=== PATIENT | male | born 1965 | race American Indian/Alaskan Native ===

== ENCOUNTER 2021-01-02 13:43 | Inpatient (IN) | payer MEDICAID ==
--- NOTE | 2021-01-02 14:47 | Event Note ---
ED Screening Note ED Screening Note: Patient brought in by EMS from [place] Complaint was failure to thrive The report by nurse from EMS states that patient has not been eating and is unable to care for himself He is complaining of bilateral lower extremity edema for 2 weeks He states he also has generalized weakness and no appetite He states he has not been taking his medication Patient states he was diagnosed with heart failure at another hospital approximately a week ago On exam patient has bilateral lower extremity pitting edema and rales and rhonchi present on lung exam This initial assessment/diagnostic orders/clinical plan/treatment(s) is/are subject to change based on patients health status, clinical progression and re- assessment by fellow clinical providers in the ED. Further treatment and workup at subsequent clinical providers discretion. Patient/guardian urged not to elope from the ED as their condition may be serious if not clinically assessed and managed. Initial orders include: Labs, EKG, chest x-ray, urine
--- NOTE | 2021-01-02 15:35 | XRay Report ---
CHEST 2 VIEWS INDICATION / CLINICAL INFORMATION: LE edema, rales on exam, hx of CHF. COMPARISON: None available. FINDINGS: SUPPORT DEVICES: None. HEART / MEDIASTINUM: Enlarged cardiac silhouette. LUNGS / PLEURA: Central pulmonary vascular congestion is noted with mild bilateral interstitial edema . No confluent infiltrates or pleural effusions. No pneumothorax. ADDITIONAL FINDINGS: No significant additional findings. IMPRESSION: 1. Congestive heart failure with mild bilateral interstitial edema. Signer Name: Watson Bergeron MD Signed: 01/02/2021 3:30 PM Workstation Name: [id number]
[2021-01-02 16:20] LABS: Hematocrit 39.1 % (35.5-45.6); Hemoglobin 12.1 gm/dl (11.8-15.2); Mean Corpuscular HGB Conc 31 % (32-34); Mean Corpuscular Volume 102 fl (84-94); Platelet Count 278 K/mm3 (140-440); Red Blood Count 3.84 M/mm3 (3.65-5.03); Red Cell Distribution Width 17.5 % (13.2-15.2)
[2021-01-02 16:25] LABS: Alanine Aminotransferase 225 units/L (7-56); Albumin 3.1 g/dL (3.9-5); Blood Urea Nitrogen 23 mg/dL (9-20); Calcium 8.7 mg/dL (8.4-10.2); Hemolysis Index 129
[2021-01-02 16:28] LABS: BUN/Creatinine Ratio 38
[2021-01-02 17:41] LABS: Total Cells Counted 100
[2021-01-02 17:42] LABS: Band Neutrophils # (Manual) 0.1 K/mm3
[2021-01-02 17:43] LABS: Anisocytosis RARE; Giant Platelets Rare; Large Platelets Rare
[2021-01-02 17:44] LABS: Ovalocytes Rare; Platelet Estimate Consistent w Auto
[2021-01-02] MEDS ORDERED: FUROSEMIDE 40 MG/4 ML INJ IV ONE (21:49)
--- NOTE | 2021-01-02 21:54 | Emergency Department Report ---
ED General Adult HPI - General Chief complaint: Extremity Injury, Lower Stated complaint: FAILURE TO THRIVE Time Seen by Provider: 01/02/21 14:45 Source: patient, EMS Mode of arrival: Stretcher Limitations: Physical Limitation - History of Present Illness Initial comments: Patient is 55-year-old male with a recent diagnosis of congestive heart failure and hypertension. Patient brought to the EMS from [facility] for evaluation of generalized weakness and unable to eat or drink and no energy. Patient also complaining of bilateral lower extremity swelling and shortness of breath. Patient denied any fever or chills. No chest pain. Patient stated that he just does not feel good. -: Gradual - Related Data Allergies Allergy/AdvReac Type Severity Reaction Status Date / Time No Known Allergies Allergy Unverified 01/02/21 14:42 ED Review of Systems ROS: Stated complaint: FAILURE TO THRIVE Other details as noted in HPI Comment: All other systems reviewed and negative Constitutional: denies: chills, fever Respiratory: orthopnea, shortness of breath, SOB with exertion, SOB at rest. denies: cough, wheezing Cardiovascular: denies: chest pain Gastrointestinal: denies: abdominal pain, nausea Musculoskeletal: denies: back pain Neurological: weakness. denies: headache, numbness, paresthesias, confusion, abnormal gait ED Past Medical Hx - Past Medical History Previous Medical History?: Yes Hx Hypertension: Yes Hx Congestive Heart Failure: Yes - Surgical History Past Surgical History?: No - Social History Smoking Status: Never Smoker ED Physical Exam - General Limitations: Physical Limitation General appearance: alert - Head Head exam: Present: atraumatic, normocephalic, normal inspection - Eye Eye exam: Present: normal appearance, PERRL - ENT ENT exam: Present: normal exam, normal orophraynx, mucous membranes moist - Respiratory Respiratory exam: Present: rales, decreased breath sounds. Absent: respiratory distress, wheezes, rhonchi, accessory muscle use, prolonged expiratory - Cardiovascular Cardiovascular Exam: Present: tachycardia, gallop - GI/Abdominal GI/Abdominal exam: Present: soft, normal bowel sounds. Absent: distended, tenderness, guarding, rebound, rigid, mass, bruit, pulsatile mass, hernia - Extremities Exam Extremities exam: Present: pedal edema - Back Exam Back exam: Present: normal inspection, full ROM. Absent: CVA tenderness (R), CVA tenderness (L) - Neurological Exam Neurological exam: Present: alert, oriented X3, CN II-XII intact - Psychiatric Psychiatric exam: Present: normal mood. Absent: homicidal ideation, suicidal ideation - Skin Skin exam: Present: warm ED Course Vital Signs 01/02/21 14:46 Temperature 97.9 F Pulse Rate 105 H Respiratory 19 Rate Blood Pressure 132/89 O2 Sat by Pulse 95 Oximetry ED Medical Decision Making - Lab Data Result diagrams: 01/02/21 15:00 01/02/21 15:00 - EKG Data -: EKG Interpreted by Me EKG shows normal: sinus rhythm Rate: tachycardia - EKG Data Interpretation: no acute changes - Radiology Data Radiology results: report reviewed - Medical Decision Making Patient is 55-year-old male with a recent diagnosis of congestive heart failure and hypertension. Patient brought to the EMS from [facility] for evaluation of generalized weakness and unable to eat or drink and no energy. Patient also complaining of bilateral lower extremity swelling and shortness of breath. Patient denied any fever or chills. No chest pain. Patient stated that he just does not feel good. Chest x-ray showed bilateral interstitial edema consistent with congestive heart failure. BNP is more than 6000. Patient started on Lasix. Patient potassium is 5.6 most likely be corrected with Lasix IV. I discussed the patient with Dr. Tidwell,, he agreed to admit the patient to medical service for further management. Critical care attestation.: If time is entered above; I have spent that time in minutes in the direct care of this critically ill patient, excluding procedure time. ED Disposition Clinical Impression: Acute exacerbation of congestive heart failure Disposition: OP ADMIT IP TO THIS HOSP Is pt being admited?: Yes Condition: Stable Referrals: PRIMARY CARE, [Primary Care Provider] - 3-5 Days
[2021-01-02] MEDS ORDERED: ALUM-MAG HYDROXIDE-SIMETHICONE 200-200-20MG/5ML ORAL LIQD 30 ML PO PRN (23:01)
[2021-01-02] MEDS ORDERED: MAGNESIUM HYDROXIDE (MOM) ORAL LIQD UDC PO PRN (23:01)
[2021-01-02] MEDS ORDERED: ONDANSETRON 4 MG/2 ML INJ IV PRN (23:01)
[2021-01-02] MEDS ORDERED: SENNOSIDES 8.6 MG TAB PO PRN (23:01)
[2021-01-02] MEDS ORDERED: ACETAMINOPHEN 325 MG TAB PO PRN (23:01)
[2021-01-02] MEDS ORDERED: traZODone 50 MG TAB PO PRN (23:05)
[2021-01-02] MEDS ORDERED: traMADol 50 MG TAB PO PRN (23:05)
[2021-01-02] MEDS ORDERED: hydrALAZINE 20 MG/1 ML INJ IV PRN (23:05)
[2021-01-02] MEDS: SODIUM POLYSTYRENE 15 GM/60 ML ORAL LIQD PO ONE (23:10)
[2021-01-03 02:52] LABS: Bilirubin,Urine NEG (Negative); Blood,Urine SM (Negative); Color,Urine Straw (Yellow); Protein,Urine <15 mg/dL mg/dL (Negative); Urobilinogen,Urine < 2.0 mg/dL (<2.0); WBC,Urine < 1.0 /HPF (0.0-6.0)
[2021-01-03] MEDS: FUROSEMIDE 40 MG/4 ML INJ IV SCH ×2 (05:36→21:30)
[2021-01-03 06:35] LABS: Basophils # (Auto) 0.1 K/mm3 (0.0-0.1); Eosinophils % (Auto) 0.6 % (0.0-4.3); Hematocrit 39.1 % (35.5-45.6); Hemoglobin 12.3 gm/dl (11.8-15.2); Lymphocytes # (Auto) 1.4 K/mm3 (1.2-5.4); Lymphocytes % (Auto) 26.5 % (13.4-35.0); Mean Corpuscular HGB Conc 32 % (32-34); Mean Corpuscular Volume 100 fl (84-94); Monocytes # (Auto) 0.6 K/mm3 (0.0-0.8); Platelet Count 327 K/mm3 (140-440); Red Blood Count 3.91 M/mm3 (3.65-5.03); Red Cell Distribution Width 17.1 % (13.2-15.2)
[2021-01-03 06:51] LABS: Alanine Aminotransferase 236 units/L (7-56); Albumin 3.3 g/dL (3.9-5); BUN/Creatinine Ratio 30; Blood Urea Nitrogen 27 mg/dL (9-20); Calcium 8.4 mg/dL (8.4-10.2); Hemolysis Index 1
[2021-01-03] MEDS ORDERED: SODIUM POLYSTYRENE 15 GM/60 ML ORAL LIQD PO ONE (07:16)
--- NOTE | 2021-01-03 07:22 | History and Physical Report ---
History of Present Illness Date of examination: 01/02/21 Date of admission: 01/02/21 22:34 Chief complaint: Shortness of breath History of present illness: Patient is 55-year-old male with a recent diagnosis of congestive heart failure and hypertension. Patient brought to the EMS from [facility] for evaluation of generalized weakness and unable to eat or drink and no energy. Patient also complaining of bilateral lower extremity swelling and shortness of breath. P atient denied any fever or chills. No chest pain. Patient stated that he just does not feel good. ED work-up shows WBC 6.4, platelets 278 hemoglobin 12.1, sodium level 133 potassium 5.7 creatinine 0.6, AST 101 and 109, ALT 222 and 236 BNP 6872 serum albumin 3.1 and 3.3. Chest x-ray done patient has congestive heart failure with mild bilateral interstitial edema. Patient seen in ED at bedside. Patient alert oriented x3. Patient reports shortness of breath on admission but denies chest pain. Patient has bilateral leg edema. I reviewed the medical record lab report. Patient has elevated potassium and was given Kayexalate x1. Repeat potassium still elevated will give another dose of Kayexalate. Cardiology consulted and echo ordered. Past History Past Medical History: diabetes, hypertension, hyperlipidemia Past Surgical History: Other (right 1/2 foot amputee due to diabetes) Social history: no significant social history Family history: diabetes, hypertension Medications and Allergies Allergies Allergy/AdvReac Type Severity Reaction Status Date / Time No Known Allergies Allergy Unverified 01/02/21 14:42 Home Medications Medication Instructions Recorded Confirmed Last Taken Type Unobtainable 01/03/21 01/03/21 Unknown History Active Meds: Active Medications Acetaminophen (Acetaminophen 325 Mg Tab) 650 mg PO Q4H PRN PRN Reason: Pain MILD(1-3)/Fever >100.5/MENDOZA Al Hydrox/Mg Hydrox/Simethicone (Alum-Mag Hydroxide-Simethicone [phone]/5ml Oral Liqd 30 Ml) 30 ml PO Q4H PRN PRN Reason: Indigestion Carvedilol (Carvedilol 3.125 Mg Tab) 3.125 mg PO BID HENRRY Furosemide (Furosemide 40 Mg/4 Ml Inj) 40 mg IV BID@0600,1800 HENRRY Hydralazine HCl (Hydralazine 20 Mg/1 Ml Inj) 5 mg IV Q4HR PRN PRN Reason: Hypertension Lisinopril (Lisinopril 10 Mg Tab) 10 mg PO QDAY HENRRY Magnesium Hydroxide (Magnesium Hydroxide (Mom) Oral Liqd Udc) 30 ml PO Q4H PRN PRN Reason: Constipation Ondansetron HCl (Ondansetron 4 Mg/2 Ml Inj) 4 mg IV Q8H PRN PRN Reason: Nausea And Vomiting Senna (Sennosides 8.6 Mg Tab) 8.6 mg PO Q12HR PRN PRN Reason: Constipation Sodium Chloride (Sodium Chloride 0.9% 10 Ml Flush Syringe) 10 ml IV BID HENRRY Sodium Chloride (Sodium Chloride 0.9% 10 Ml Flush Syringe) 10 ml IV PRN PRN PRN Reason: LINE FLUSH Sodium Polystyrene Sulfonate (Sodium Polystyrene 15 Gm/60 Ml Oral Liqd) 30 gm PO ONCE ONE Stop: 01/02/21 23:02 Tramadol HCl (Tramadol 50 Mg Tab) 50 mg PO Q6H PRN PRN Reason: Pain, Moderate (4-6) Trazodone HCl (Trazodone 50 Mg Tab) 50 mg PO QHS PRN PRN Reason: Insomnia Review of Systems Constitutional: fatigue, weakness Ears, nose, mouth and throat: no epistaxis, no bleeding gums Cardiovascular: shortness of breath Respiratory: shortness of breath, dyspnea on exertion, no hemoptysis Gastrointestinal: no melena Rectal: no hemorrhoids Musculoskeletal: muscle weakness, no neck stiffness Integumentary: no rash, no pruritis Neurological: no head injury Psychiatric: no suicidal ideation, no disorientation, no hallucinations Hematologic/Lymphatic: no easy bruising, no easy bleeding Allergic/Immunologic: no urticaria Exam - Constitutional Vitals: Temp Pulse Resp BP Pulse Ox 97.9 F 105 H 19 132/89 95 01/02/21 14:46 01/02/21 14:46 01/02/21 14:46 01/02/21 14:46 01/02/21 14:46 General appearance: Present: mild distress, obese - EENT Eyes: Present: PERRL ENT: hearing intact, clear oral mucosa - Neck Neck: Present: supple, normal ROM - Respiratory Respiratory effort: normal Respiratory: bilateral: CTA - Cardiovascular Heart rate: 105 Heart Sounds: Present: S1 & S2. Absent: rub, click - Extremities Extremities: pulses symmetrical, No edema Peripheral Pulses: within normal limits - Abdominal General gastrointestinal: Present: soft, non-tender, non-distended, normal bowel sounds Male genitourinary: Present: normal - Integumentary Integumentary: Present: clear, warm, dry - Musculoskeletal Musculoskeletal: gait normal, strength equal bilaterally - Psychiatric Psychiatric: appropriate mood/affect, intact judgment & insight - Neurologic Neurologic: CNII-XII intact, moves all extremities - Allied Health Allied health notes reviewed: nursing HEART Score - HEART Score Troponin: Troponin T < 0.010 ng/mL (0.00-0.029) 01/02/21 15:00 Results - Labs CBC & Chem 7: 01/03/21 05:07 01/03/21 05:07 Labs: Abnormal lab results 01/02/21 01/02/21 Range/Units 15:00 15:00 MCV 102 H (84-94) fl MCHC 31 L (32-34) % RDW 17.5 H (13.2-15.2) % Monocytes % (Manual) 12.0 H (0.0-7.3) % Sodium 133 L (137-145) mmol/L Potassium 5.7 H (3.6-5.0) mmol/L Chloride 97.6 L (98-107) mmol/L BUN 23 H (9-20) mg/dL Creatinine 0.6 L (0.8-1.3) mg/dL AST 101 H (5-40) units/L ALT 225 H (7-56) units/L Total Creatine Kinase 225 H (55-170) units/L NT-Pro-B Natriuret Pep 6872 H (0-900) pg/mL Albumin 3.1 L (3.9-5) g/dL Assessment and Plan - Patient Problems (1) Acute exacerbation of congestive heart failure Current Visit: Yes Status: Acute Plan to address problem: ASA, BB, diuretics and oxygen supplement if needed 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 Cause- alcohol use/hepatitis/dehydration Monitor liver enzymes Will Consult GI if needed (5) Protein-calorie malnutrition, moderate Current Visit: Yes Status: Acute Plan to address problem: Consult product analyst Advised on healthy diet (6) DVT prophylaxis Current Visit: Yes Status: Acute Plan to address problem: SCD (7) Full code status Current Visit: Yes Status: Acute Plan to address problem: patient is full code
[2021-01-03] MEDS: LISINOPRIL 10 MG TAB PO SCH (09:54)
[2021-01-03] MEDS: carvediloL 3.125 MG TAB PO SCH (09:55)
--- NOTE | 2021-01-03 10:03 | Ultrasound Report ---
ULTRASOUND ABDOMEN, COMPLETE INDICATION / CLINICAL INFORMATION: Transaminitis. COMPARISON: None available. FINDINGS: PANCREAS: No well-visualized secondary to overlying bowel gas. ABDOMINAL AORTA: No significant abnormality. IVC: No significant abnormality. LIVER: Diffuse increased echogenicity throughout the hepatic parenchyma without evidence of focal hep atic lesion. The liver is of normal size measuring 12.9 cm in cc dimension. GALLBLADDER: The gallbladder is decompressed likely contributing to gallbladder wall thickening measu ring 5 mm. No evidence of cholelithiasis or pericholecystic fluid. BILE DUCTS: No significant abnormality. Common bile duct measures 1.4 mm. KIDNEYS: Right: No significant abnormality. Left: No significant abnormality. SPLEEN: No significant abnormality. FREE FLUID: None. ADDITIONAL FINDINGS: None. IMPRESSION: 1. Diffuse hepatic steatosis without focal hepatic lesion. 2. The gallbladder is decompressed likely contributing to the above-mentioned wall thickening. No caroline dence of cholelithiasis or pericholecystic fluid to suggest acute cholecystitis. Signer Name: Watson Bergeron MD Signed: 01/03/2021 9:59 AM Workstation Name: [id number]
--- NOTE | 2021-01-03 10:40 | Progress Note ---
Assessment and Plan Assessment and plan: Patient is 55-year-old male with a recent diagnosis of congestive heart failure and hypertension. Patient brought to the EMS from [facility] for evaluation of generalized weakness and unable to eat or drink and no energy. Patient also complaining of bilateral lower extremity swelling and shortness of breath. Patient denied any fever or chills. No chest pain. Patient stated that he just does not feel good. ED work-up shows WBC 6.4, platelets 278 hemoglobin 12.1, sodium level 133 potassium 5.7 creatinine 0.6, AST 101 and 109, ALT 222 and 236 BNP 6872 serum albumin 3.1 and 3.3. Chest x-ray done patient has congestive heart failure with mild bilateral interstitial edema. Patient seen in ED at bedside. Patient alert oriented x3. Patient reports shortness of breath on admission but denies chest pain. Patient has bilateral leg edema. I reviewed the medical record lab report. Patient has elevated potassium and was given Kayexalate x1. Repeat potassium still elevated will give another dose of Kayexalate. Cardiology consulted and echo ordered. 01/03: Abdominal ultrasound ordered by me shows diffuse steatosis Continue supportive care will obtain PT OT. Fall precautions. Continue diur esis. Patient according to ER documentation was found in a questionable social situation. Will obtain case management evaluation as ultimately a safe environment is in the for the patient. I also discussed with nursing staff to obtain his home medication list to assist with his management. He is a poor historian and some of his information are not I did not. Monitor electrolytes and correct as needed. Kayexalate was given again today for the hyperkalemia we will recheck labs in a.m.. Elevated LFTs may be precluding the use of atorvastatin but will defer to cardiology. (1) Acute exacerbation of congestive heart failure Current Visit: Yes Status: Acute Plan to address problem: ASA, BB, diuretics and oxygen supplement if needed ECHO and systems admin consul Chest x-ray shows Pulmonary edema and blood work shows elevated BNP (2) Diabetes type 2, uncontrolled Current Visit: Yes Status: Acute Plan to address problem: Monitor blood sugar with SSI Check HGA1c (3) Hyperkalemia Current Visit: Yes Status: Acute Plan to address problem: Kayaoxalate Monitor potassium level Check Mag level (4) Elevated liver transaminase level Current Visit: Yes Status: Acute Plan to address problem: ? Cause- alcohol use/hepatitis/dehydration Monitor liver enzymes Will Consult GI if needed (5) Protein-calorie malnutrition, moderate Current Visit: Yes Status: Acute Plan to address problem: Consult community health representative Advised on healthy diet (6) DVT prophylaxis Current Visit: Yes Status: Acute Plan to address problem: SCD (7) Full code status Current Visit: Yes Status: Acute Plan to address problem: patient is full code History Interval history: Patient seen and examined reports improvement in symptoms still with orthopnea. Informs me that he had a recent amputation about a month ago of the right forefoot. And since then discharged from the hospital has been practically homeless. He is a poor historian. Hospitalist Physical - Physical exam Narrative exam: VITAL SIGNS: Reviewed. GENERAL: The patient appears normally developed, Vital signs as documented. HEAD: No signs of head trauma. EYES: Pupils are equal. Extraocular motions intact. EARS: Hearing grossly intact. MOUTH: Oropharynx is normal. NECK: No adenopathy, no JVD. CHEST: Chest with clear breath sounds bilaterally. No wheezes, rales, or rhonchi. CARDIAC: Regular rate and rhythm. S1 and S2, without murmurs, gallops, or rubs. VASCULAR: No Edema. Peripheral pulses normal and equal in all extremities. ABDOMEN: Soft, non tender and non distended. No rebound or guarding, and no masses palpated. Bowel Sounds normal. MUSCULOSKELETAL: Good range of motion of all major joints. Extremities without clubbing, cyanosis. Right forefoot partial amputation well-healed. Trace bilateral pedal edema. NEUROLOGIC EXAM: Alert and oriented x 3 No focal sensory or strength deficits. Speech normal. Follows commands. PSYCHIATRIC: Mood normal. SKIN: detail exam as documented in skin assessment - Constitutional Vitals: Temp Pulse Resp BP Pulse Ox 97.4 F L 103 H 20 138/104 92 01/03/21 04:30 01/03/21 09:55 01/03/21 10:14 01/03/21 09:55 01/03/21 04:30 General appearance: Present: mild distress, obese HEART Score - HEART Score Troponin: Troponin T < 0.010 ng/mL (0.00-0.029) 01/02/21 15:00 Results - Labs CBC & Chem 7: 01/03/21 05:07 01/03/21 05:07 Labs: Laboratory Last Values WBC 5.4 K/mm3 (4.5-11.0) 01/03/21 05:07 RBC 3.91 M/mm3 (3.65-5.03) 01/03/21 05:07 Hgb 12.3 gm/dl (11.8-15.2) 01/03/21 05:07 Hct 39.1 % (35.5-45.6) 01/03/21 05:07 MCV 100 fl (84-94) H 01/03/21 05:07 MCH 32 pg (28-32) 01/03/21 05:07 MCHC 32 % (32-34) 01/03/21 05:07 RDW 17.1 % (13.2-15.2) H 01/03/21 05:07 Plt Count 327 K/mm3 (140-440) 01/03/21 05:07 Lymph % (Auto) 26.5 % (13.4-35.0) 01/03/21 05:07 [place] % (Auto) 11.0 % (0.0-7.3) H 01/03/21 05:07 Eos % (Auto) 0.6 % (0.0-4.3) 01/03/21 05:07 Baso % (Auto) 1.0 % (0.0-1.8) 01/03/21 05:07 Lymph # (Auto) 1.4 K/mm3 (1.2-5.4) 01/03/21 05:07 [place] # (Auto) 0.6 K/mm3 (0.0-0.8) 01/03/21 05:07 Eos # (Auto) 0.0 K/mm3 (0.0-0.4) 01/03/21 05:07 Baso # (Auto) 0.1 K/mm3 (0.0-0.1) 01/03/21 05:07 Add Manual Diff Complete 01/02/21 15:00 Total Counted 100 01/02/21 15:00 Seg Neutrophils % 60.9 % (40.0-70.0) 01/03/21 05:07 Seg Neuts % (Manual) 55.0 % (40.0-70.0) 01/02/21 15:00 Band Neutrophils % 1.0 % 01/02/21 15:00 Lymphocytes % (Manual) 31.0 % (13.4-35.0) 01/02/21 15:00 Monocytes % (Manual) 12.0 % (0.0-7.3) H 01/02/21 15:00 Eosinophils % (Manual) 1.0 % (0.0-4.3) 01/02/21 15:00 Nucleated RBC % Not Reportable 01/02/21 15:00 Seg Neutrophils # 3.3 K/mm3 (1.8-7.7) 01/03/21 05:07 Seg Neutrophils # Man 3.5 K/mm3 (1.8-7.7) 01/02/21 15:00 Band Neutrophils # 0.1 K/mm3 01/02/21 15:00 Lymphocytes # (Manual) 2.0 K/mm3 (1.2-5.4) 01/02/21 15:00 Abs React Lymphs (Man) 0.0 K/mm3 01/02/21 15:00 Monocytes # (Manual) 0.8 K/mm3 (0.0-0.8) 01/02/21 15:00 Eosinophils # (Manual) 0.1 K/mm3 (0.0-0.4) 01/02/21 15:00 Basophils # (Manual) 0.0 K/mm3 (0.0-0.1) 01/02/21 15:00 Metamyelocytes # 0.0 K/mm3 01/02/21 15:00 Myelocytes # 0.0 K/mm3 01/02/21 15:00 Promyelocytes # 0.0 K/mm3 01/02/21 15:00 Blast Cells # 0.0 K/mm3 01/02/21 15:00 WBC Morphology Not Reportable 01/02/21 15:00 Hypersegmented Neuts Not Reportable 01/02/21 15:00 Hyposegmented Neuts Not Reportable 01/02/21 15:00 Hypogranular Neuts Not Reportable 01/02/21 15:00 Smudge Cells Not Reportable 01/02/21 15:00 Toxic Granulation Not Reportable 01/02/21 15:00 Toxic Vacuolation Not Reportable 01/02/21 15:00 Dohle Bodies Not Reportable 01/02/21 15:00 Pelger-Huet Anomaly Not Reportable 01/02/21 15:00 Eze Rods Not Reportable 01/02/21 15:00 Platelet Estimate Consistent w auto 01/02/21 15:00 Clumped Platelets Not Reportable 01/02/21 15:00 Plt Clumps, EDTA Not Reportable 01/02/21 15:00 Large Platelets Rare 01/02/21 15:00 Giant Platelets Rare 01/02/21 15:00 Platelet Satelliting Not Reportable 01/02/21 15:00 Plt Morphology Comment Not Reportable 01/02/21 15:00 RBC Morphology Not Reportable 01/02/21 15:00 Dimorphic RBCs Not Reportable 01/02/21 15:00 Polychromasia Rare 01/02/21 15:00 Hypochromasia Not Reportable 01/02/21 15:00 Poikilocytosis Not Reportable 01/02/21 15:00 Anisocytosis Rare 01/02/21 15:00 Microcytosis Not Reportable 01/02/21 15:00 Macrocytosis Not Reportable 01/02/21 15:00 Spherocytes Not Reportable 01/02/21 15:00 Pappenheimer Bodies Not Reportable 01/02/21 15:00 Sickle Cells Not Reportable 01/02/21 15:00 Target Cells Not Reportable 01/02/21 15:00 Tear Drop Cells Not Reportable 01/02/21 15:00 Ovalocytes Rare 01/02/21 15:00 Helmet Cells Not Reportable 01/02/21 15:00 [place] Bodies Not Reportable 01/02/21 15:00 [place] Rings Not Reportable 01/02/21 15:00 Mario Cells Not Reportable 01/02/21 15:00 Bite Cells Not Reportable 01/02/21 15:00 Crenated Cell Not Reportable 01/02/21 15:00 Elliptocytes Not Reportable 01/02/21 15:00 Acanthocytes (Spur) Not Reportable 01/02/21 15:00 Rouleaux Not Reportable 01/02/21 15:00 Hemoglobin C Crystals Not Reportable 01/02/21 15:00 Schistocytes Not Reportable 01/02/21 15:00 Malaria parasites Not Reportable 01/02/21 15:00 Sj Bodies Not Reportable 01/02/21 15:00 Hem Pathologist Commnt No 01/02/21 15:00 Sodium 137 mmol/L (137-145) 01/03/21 05:07 Potassium 5.5 mmol/L (3.6-5.0) H 01/03/21 05:07 Chloride 94.7 mmol/L (98-107) L 01/03/21 05:07 Carbon Dioxide 28 mmol/L (22-30) 01/03/21 05:07 Anion Gap 20 mmol/L 01/03/21 05:07 BUN 27 mg/dL (9-20) H 01/03/21 05:07 Creatinine 0.9 mg/dL (0.8-1.3) 01/03/21 05:07 Estimated GFR > 60 ml/min 01/03/21 05:07 BUN/Creatinine Ratio 30 % 01/03/21 05:07 Glucose 150 mg/dL (75-100) H 01/03/21 05:07 POC Glucose 159 mg/dL (70-105) H 01/03/21 08:21 Hemoglobin A1c 5.2 % (4-6) 01/03/21 00:50 Calcium 8.4 mg/dL (8.4-10.2) 01/03/21 05:07 Magnesium 2.10 mg/dL (1.7-2.3) 01/02/21 15:00 Total Bilirubin 1.50 mg/dL (0.1-1.2) H 01/03/21 05:07 AST 109 units/L (5-40) H 01/03/21 05:07 ALT 236 units/L (7-56) H 01/03/21 05:07 Alkaline Phosphatase 108 units/L (35-129) 01/03/21 05:07 Total Creatine Kinase 225 units/L (55-170) H 01/02/21 15:00 Troponin T < 0.010 ng/mL (0.00-0.029) 01/02/21 15:00 NT-Pro-B Natriuret Pep 6872 pg/mL (0-900) H 01/02/21 15:00 Total Protein 7.4 g/dL (6.3-8.2) 01/03/21 05:07 Albumin 3.3 g/dL (3.9-5) L 01/03/21 05:07 Albumin/Globulin Ratio 0.8 % 01/03/21 05:07 Urine Color Straw (Yellow) 01/03/21 02:37 Urine Turbidity Clear (Clear) 01/03/21 02:37 Urine pH 5.0 (5.0-7.0) 01/03/21 02:37 Ur Specific [place] 1.005 (1.003-1.030) 01/03/21 02:37 Urine Protein <15 mg/dl mg/dL (Negative) 01/03/21 02:37 Urine Glucose (UA) Neg mg/dL (Negative) 01/03/21 02:37 Urine Ketones Neg mg/dL (Negative) 01/03/21 02:37 Urine Blood Sm (Negative) 01/03/21 02:37 Urine Nitrite Neg (Negative) 01/03/21 02:37 Urine Bilirubin Neg (Negative) 01/03/21 02:37 Urine Urobilinogen < 2.0 mg/dL (<2.0) 01/03/21 02:37 Ur Leukocyte Esterase Neg (Negative) 01/03/21 02:37 Urine WBC (Auto) < 1.0 /HPF (0.0-6.0) 01/03/21 02:37 Urine RBC (Auto) 1.0 /HPF (0.0-6.0) 01/03/21 02:37 U Epithel Cells (Auto) 1.0 /HPF (0-13.0) 01/03/21 02:37 [place]/IV: Voiding Method Toilet Active Medications - Current Medications Current Medications: Generic Name Dose Route Start Last Admin Trade Name Freq PRN Reason Stop Dose Admin Acetaminophen 650 mg 01/02/21 23:01 Acetaminophen 325 Mg Tab PO Q4H PRN Pain MILD(1-3)/Fever >100.5/MENDOZA Al Hydrox/Mg Hydrox/Simethicone 30 ml 01/02/21 23:01 Alum-Mag Hydroxide-Simethicone [id number]/5ml Oral Liqd 30 Ml PO Q4H PRN Indigestion Carvedilol 3.125 mg 01/03/21 08:00 01/03/21 09:55 Carvedilol 3.125 Mg Tab PO 3.125 mg BID@0800,1700 HENRRY Administration Furosemide 40 mg 01/03/21 06:00 01/03/21 05:36 Furosemide 40 Mg/4 Ml Inj IV 40 mg BID@0600,1800 HENRRY Administration Hydralazine HCl 5 mg 01/02/21 23:05 Hydralazine 20 Mg/1 Ml Inj IV Q4H PRN Hypertension Lisinopril 10 mg 01/03/21 10:00 01/03/21 09:54 Lisinopril 10 Mg Tab PO 10 mg QDAY HENRRY Administration Magnesium Hydroxide 30 ml 01/02/21 23:01 Magnesium Hydroxide (Mom) Oral Liqd Udc PO Q4H PRN Constipation Ondansetron HCl 4 mg 01/02/21 23:01 Ondansetron 4 Mg/2 Ml Inj IV Q8H PRN Nausea And Vomiting Senna 8.6 mg 01/02/21 23:01 Sennosides 8.6 Mg Tab PO Q12HR PRN Constipation Sodium Chloride 10 ml 01/03/21 10:00 01/03/21 09:56 Sodium Chloride 0.9% 10 Ml Flush Syringe IV 10 ml BID HENRRY Administration Sodium Chloride 10 ml 01/02/21 23:01 01/03/21 05:37 Sodium Chloride 0.9% 10 Ml Flush Syringe IV 10 ml PRN PRN Administration LINE FLUSH Tramadol HCl 50 mg 01/02/21 23:05 Tramadol 50 Mg Tab PO Q6H PRN Pain, Moderate (4-6) Trazodone HCl 50 mg 01/02/21 23:05 Trazodone 50 Mg Tab PO QHS PRN Insomnia
--- NOTE | 2021-01-03 11:26 | Consultation ---
History of Present Illness Consult date: 01/03/21 Consult reason: congestive heart failure History of present illness: Mr. Baca, 55-year-old -[place] gentleman was brought to the emergency room at [facility] for complaints of failure to thrive from [place]. He apparently is not eating well and unable to take care of himself. Patient complaining of bilateral lower extremity edema for 2 weeks. Generalized weakness and no appetite. And he has not been taking his medications regularly. He was diagnosed with heart failure according to him couple of weeks ago in [facility] while in [facility] where he underwent according to him partial amputation of the right foot. Patient denies any chest pain, not much of shortness of breath his main complaint is leg swelling and generalized weakness. No fever or chills. Patient tells me he was in the hospital only to 3 weeks ago in [facility] where he underwent amputation as mentioned above partial amputation right foot. Apparently it was infected. Patient was evaluated in the emergency room. Chest x-ray showed cardiomegaly and probable congestive heart failure with elevatedBNP of more than 6000, he was admitted with a diagnosis of biventricular failure and being treated for congestive heart failure. Patient at the time of my examination denies any chest pain, no shortness of breath and his only complaint was bilateral legs swelling which is of chronic duration. Past History Past Medical History: diabetes (Denies any history of diabetes mellitus.), heart failure (Patient was hospitalized a few weeks ago in [place] and was told he has heart problems and he was noted to have bilateral leg swelling. Details not clear. Denies any chest pain.), hypertension (Longstanding hypertension since his 20s, not well treated.), hyperlipidemia Past Surgical History: Other (right foot,prtial ampution. ) Social history: no significant social history, single (He says he lives in a residential, had children but not . His father apparently at the age of 86 to 3 weeks ago. Mother 82 years old lives in [facility] smoking (Chronic smoker since age 12, still smokes half pack per day.), alcohol abuse (Drinks beer quite a bit in the past but presently says he is not using that much of alcohol.). denies: prescription drug abuse, IV drug use Family history: diabetes, hypertension Medications and Allergies Allergies Allergy/AdvReac Type Severity Reaction Status Date / Time No Known Allergies Allergy Unverified 01/02/21 14:42 Home Medications Medication Instructions Recorded Confirmed Last Taken Type Unobtainable 01/03/21 01/03/21 Unknown History Active Meds: Active Medications Acetaminophen (Acetaminophen 325 Mg Tab) 650 mg PO Q4H PRN PRN Reason: Pain MILD(1-3)/Fever >100.5/MENDOZA Al Hydrox/Mg Hydrox/Simethicone (Alum-Mag Hydroxide-Simethicone [phone]/5ml Oral Liqd 30 Ml) 30 ml PO Q4H PRN PRN Reason: Indigestion Carvedilol (Carvedilol 3.125 Mg Tab) 3.125 mg PO BID@0800,1700 [facility] Last Admin: 01/03/21 09:55 Dose: 3.125 mg Documented by: Furosemide (Furosemide 40 Mg/4 Ml Inj) 40 mg IV BID@0600,1800 [facility] Last Admin: 01/03/21 05:36 Dose: 40 mg Documented by: Hydralazine HCl (Hydralazine 20 Mg/1 Ml Inj) 5 mg IV Q4H PRN PRN Reason: Hypertension Lisinopril (Lisinopril 10 Mg Tab) 10 mg PO QDAY [facility] Last Admin: 01/03/21 09:54 Dose: 10 mg Documented by: Magnesium Hydroxide (Magnesium Hydroxide (Mom) Oral Liqd Udc) 30 ml PO Q4H PRN PRN Reason: Constipation Ondansetron HCl (Ondansetron 4 Mg/2 Ml Inj) 4 mg IV Q8H PRN PRN Reason: Nausea And Vomiting Senna (Sennosides 8.6 Mg Tab) 8.6 mg PO Q12HR PRN PRN Reason: Constipation Sodium Chloride (Sodium Chloride 0.9% 10 Ml Flush Syringe) 10 ml IV BID [facility] Last Admin: 01/03/21 09:56 Dose: 10 ml Documented by: Sodium Chloride (Sodium Chloride 0.9% 10 Ml Flush Syringe) 10 ml IV PRN PRN PRN Reason: LINE FLUSH Last Admin: 01/03/21 05:37 Dose: 10 ml Documented by: Tramadol HCl (Tramadol 50 Mg Tab) 50 mg PO Q6H PRN PRN Reason: Pain, Moderate (4-6) Trazodone HCl (Trazodone 50 Mg Tab) 50 mg PO QHS PRN PRN Reason: Insomnia Review of Systems Constitutional: poor appetite, no fever, no chills, no chronic headaches Ears, nose, mouth and throat: no ear discharge Cardiovascular: orthopnea (Patient says she cannot sleep well at night exact is not clear.), edema (Bilateral chronic lower extremity edema.), shortness of breath, no chest pain, no syncope Respiratory: cough with sputum (He has chronic cough with whitish phlegm.) Gastrointestinal: no abdominal pain Genitourinary Male: no hematuria Rectal: no bleeding Musculoskeletal: no neck stiffness Integumentary: no rash Neurological: gait dysfunction (Using walker for long time and recently underwent his foot amputation.), no seizures Psychiatric: no anxiety Endocrine: no cold intolerance Hematologic/Lymphatic: no easy bleeding Allergic/Immunologic: no urticaria Physical Examination Vital Signs Temp Pulse Resp BP Pulse Ox 97.9 F 105 H 19 132/89 95 01/02/21 14:46 01/02/21 14:46 01/02/21 14:46 01/02/21 14:46 01/02/21 14:46 General appearance: no acute distress HEENT: Positive: PERRL Neck: Positive: neck supple, trachea midline Cardiac: Positive: Reg Rate and Rhythm, S4. Negative: Audible Murmur Lungs: Positive: Decreased Breath Sounds, Rhonchi (Rhonchi noted diffusely in both lung rehman.) Neuro: Positive: Grossly Intact Abdomen: Positive: Unremarkable Male genitourinary: Positive: deferred Skin: Positive: Rash Incision: Incision Site (Patient has Bandage in the right foot from recent surgery few weeks ago.) Extremities: Present: +3 Edema (Chronic bilateral edema noted.) Results 01/03/21 05:07 01/03/21 05:07 Cardiac Enzymes 01/02/21 01/03/21 Range/Units 15:00 05:07 AST 101 H 109 H (5-40) units/L CBC 01/02/21 01/03/21 Range/Units 15:00 05:07 WBC 6.4 5.4 (4.5-11.0) K/mm3 RBC 3.84 3.91 (3.65-5.03) M/mm3 Hgb 12.1 12.3 (11.8-15.2) gm/dl Hct 39.1 39.1 (35.5-45.6) % Plt Count 278 327 (140-440) K/mm3 Lymph # (Auto) 1.4 (1.2-5.4) K/mm3 [place] # (Auto) 0.6 (0.0-0.8) K/mm3 Eos # (Auto) 0.0 (0.0-0.4) K/mm3 Baso # (Auto) 0.1 (0.0-0.1) K/mm3 Comprehensive Metabolic Panel 01/02/21 01/03/21 01/03/21 Range/Units 15:00 00:50 05:07 Sodium 133 L 137 (137-145) mmol/L Potassium 5.7 H 5.8 H 5.5 H (3.6-5.0) mmol/L Chloride 97.6 L 94.7 L (98-107) mmol/L Carbon Dioxide 22 28 (22-30) mmol/L BUN 23 H 27 H (9-20) mg/dL Creatinine 0.6 L 0.9 (0.8-1.3) mg/dL Glucose 96 150 H (75-100) mg/dL Calcium 8.7 8.4 (8.4-10.2) mg/dL AST 101 H 109 H (5-40) units/L ALT 225 H 236 H (7-56) units/L Alkaline Phosphatase 107 108 (35-129) units/L Total Protein 7.8 7.4 (6.3-8.2) g/dL Albumin 3.1 L 3.3 L (3.9-5) g/dL Laboratory Tests 01/02/21 15:00 AST 101 H ALT 225 H Troponin T < 0.010 NT-Pro-B Natriuret Pep 6872 H EKG interpretations - Telemetry EKG Rhythm: Sinus Rhythm (EKG done in the emergency room showed sinus rhythm in the 90s, probable left atrial enlargement noted.) Assessment and Plan 55-year-old -[place] gentleman, with longstanding essential hypertension according to him from his 20s, history of chronic smoking smoking half pack per day or more since age 12, was recently hospitalized in [facility] and underwent amputation of the right foot. He says he has infection. Exact etiology not clear. Patient is not taking his medications. Patient is to be in residential in [place], he was recently moved to this area. He was brought to the emergency room and was noted to be in congestive heart failure with cardiomegaly on chest x-ray and questionable heart failure and also bilateral lower extremity. Started on diuretic. Agree with the same. Patient's physical examination shows diffuse rhonchi both the lung suggesting patient may have underlying lung disease from chronic chronic smoking ,his main problem may be right heart failure with marked leg swelling. Also may have underlying hypertensive cardiomyopathy considering his longstanding history of hypertension, not under treatment. Agree with present management, monitor the blood pressure, will get an echocardiogram for further evaluation of his LV and RV function. Patient states he had work-up done in [facility], will try to get the records from there if he had cardiac work-up done. Presently patient appears to be stable, agree with continue medical therapy. We will reevaluate him after the echocardiogram and if we can get the records from the other hospital. - Patient Problems (1) Essential hypertension Current Visit: Yes Status: Acute (2) Acute exacerbation of congestive heart failure Current Visit: Yes Status: Acute (3) Elevated liver transaminase level Current Visit: Yes Status: Acute (4) Smoking greater than 40 pack years Current Visit: Yes Status: Acute
[2021-01-03] MEDS: SODIUM POLYSTYRENE 15 GM/60 ML ORAL LIQD PO ONE (23:05)
[2021-01-04] MEDS: FUROSEMIDE 40 MG/4 ML INJ IV SCH ×2 (06:33→17:55)
[2021-01-04 07:34] LABS: Hematocrit 37.8 % (35.5-45.6); Hemoglobin 12.3 gm/dl (11.8-15.2); Mean Corpuscular HGB Conc 32 % (32-34); Mean Corpuscular Volume 96 fl (84-94); Platelet Count 301 K/mm3 (140-440); Red Blood Count 3.95 M/mm3 (3.65-5.03)
[2021-01-04 07:49] LABS: Alanine Aminotransferase 182 units/L (7-56); BUN/Creatinine Ratio 25; Blood Urea Nitrogen 20 mg/dL (9-20); Calcium 7.9 mg/dL (8.4-10.2); Hemolysis Index 1
[2021-01-04] MEDS: carvediloL 3.125 MG TAB PO SCH (08:07)
[2021-01-04] MEDS ORDERED: carvediloL 3.125 MG TAB PO SCH (08:49)
[2021-01-04] MEDS: LISINOPRIL 10 MG TAB PO SCH (11:31)
--- NOTE | 2021-01-04 11:33 | Progress Note ---
Assessment and Plan Assessment and plan: Patient is 55-year-old male with a recent diagnosis of congestive heart failure and hypertension. Patient brought to the EMS from [facility] for evaluation of generalized weakness and unable to eat or drink and no energy. Patient also complaining of bilateral lower extremity swelling and shortness of breath. Patient denied any fever or chills. No chest pain. Patient stated that he just does not feel good. ED work-up shows WBC 6.4, platelets 278 hemoglobin 12.1, sodium level 133 potassium 5.7 creatinine 0.6, AST 101 and 109, ALT 222 and 236 BNP 6872 serum albumin 3.1 and 3.3. Chest x-ray done patient has congestive heart failure with mild bilateral interstitial edema. Patient seen in ED at bedside. Patient alert oriented x3. Patient reports shortness of breath on admission but denies chest pain. Patient has bilateral leg edema. I reviewed the medical record lab report. Patient has elevated potassium and was given Kayexalate x1. Repeat potassium still elevated will give another dose of Kayexalate. Cardiology consulted and echo ordered. 01/03: Abdominal ultrasound ordered by me shows diffuse steatosis Continue supportive care will obtain PT OT. Fall precautions. Continue diur esis. Patient according to ER documentation was found in a questionable social situation. Will obtain case management evaluation as ultimately a safe environment is in the for the patient. I also discussed with nursing staff to obtain his home medication list to assist with his management. He is a poor historian and some of his information are not I did not. Monitor electrolytes and correct as needed. Kayexalate was given again today for the hyperkalemia we will recheck labs in a.m.. Elevated LFTs may be precluding the use of atorvastatin but will defer to cardiology. 01/04: Continue supportive care discussed with sales project engineer will plan for cardiac cath probably in a.m.. Requested records from hospital in [place] (1) Acute on chronic congestive heart failure presumed systolic with exacerbation Current Visit: Yes Status: Acute Plan to address problem: ASA, BB, diuretics and oxygen supplement if needed ECHO and sales project engineer consul Chest x-ray shows Pulmonary edema and blood work shows elevated BNP (2) Diabetes type 2, uncontrolled Current Visit: Yes Status: Acute Plan to address problem: Monitor blood sugar with SSI Check HGA1c (3) Hyperkalemia Current Visit: Yes Status: Acute Plan to address problem: Kayaoxalate Monitor potassium level Check Mag level (4) Elevated liver transaminase level Current Visit: Yes Status: Acute Plan to address problem: ? Cause- alcohol use/hepatitis/dehydration Monitor liver enzymes Will Consult GI if needed (5) Protein-calorie malnutrition, moderate Current Visit: Yes Status: Acute Plan to address problem: Consult rotational moulding operator Advised on healthy diet (6) Hyponatremia (7) Partial right foot amputation with debility (8) DVT prophylaxis Current Visit: Yes Status: Acute Plan to address problem: SCD (9) Full code status Current Visit: Yes Status: Acute Plan to address problem: patient is full code History Interval history: Patient seen and examined reports improvement in symptoms still with orthopnea. Some improvement noted. Hospitalist Physical - Physical exam Narrative exam: VITAL SIGNS: Reviewed. GENERAL: The patient appears normally developed, Vital signs as documented. HEAD: No signs of head trauma. EYES: Pupils are equal. Extraocular motions intact. EARS: Hearing grossly intact. MOUTH: Oropharynx is normal. NECK: No adenopathy, no JVD. CHEST: Chest with clear breath sounds bilaterally. No wheezes, rales, or rhon chi. CARDIAC: Tachycardiac otherwise regular rhythm S1 and S2, without murmurs, gallops, or rubs. VASCULAR: No Edema. Peripheral pulses normal and equal in all extremities. ABDOMEN: Soft, non tender and non distended. No rebound or guarding, and no masses palpated. Bowel Sounds normal. MUSCULOSKELETAL: Good range of motion of all major joints. Extremities without clubbing, cyanosis. Right forefoot partial amputation well-healed. Trace bilateral pedal edema. NEUROLOGIC EXAM: Alert and oriented x 3 No focal sensory or strength deficits. Speech normal. Follows commands. PSYCHIATRIC: Mood normal. SKIN: detail exam as documented in skin assessment - Constitutional Vitals: Temp Pulse Resp BP Pulse Ox 97.6 F 91 H 20 134/93 90 01/04/21 07:22 01/04/21 07:22 01/04/21 07:22 01/04/21 07:22 01/04/21 07:22 General appearance: Present: no acute distress HEART Score - HEART Score Troponin: Troponin T < 0.010 ng/mL (0.00-0.029) 01/02/21 15:00 Results - Labs CBC & Chem 7: 01/04/21 06:53 01/04/21 06:53 Labs: Laboratory Last Values WBC 7.5 K/mm3 (4.5-11.0) 01/04/21 06:53 RBC 3.95 M/mm3 (3.65-5.03) 01/04/21 06:53 Hgb 12.3 gm/dl (11.8-15.2) 01/04/21 06:53 Hct 37.8 % (35.5-45.6) 01/04/21 06:53 MCV 96 fl (84-94) H 01/04/21 06:53 MCH 31 pg (28-32) 01/04/21 06:53 MCHC 32 % (32-34) 01/04/21 06:53 RDW 17.0 % (13.2-15.2) H 01/04/21 06:53 Plt Count 301 K/mm3 (140-440) 01/04/21 06:53 Lymph % (Auto) 26.5 % (13.4-35.0) 01/03/21 05:07 [place] % (Auto) 11.0 % (0.0-7.3) H 01/03/21 05:07 Eos % (Auto) 0.6 % (0.0-4.3) 01/03/21 05:07 Baso % (Auto) 1.0 % (0.0-1.8) 01/03/21 05:07 Lymph # (Auto) 1.4 K/mm3 (1.2-5.4) 01/03/21 05:07 [place] # (Auto) 0.6 K/mm3 (0.0-0.8) 01/03/21 05:07 Eos # (Auto) 0.0 K/mm3 (0.0-0.4) 01/03/21 05:07 Baso # (Auto) 0.1 K/mm3 (0.0-0.1) 01/03/21 05:07 Add Manual Diff Complete 01/02/21 15:00 Total Counted 100 01/02/21 15:00 Seg Neutrophils % 60.9 % (40.0-70.0) 01/03/21 05:07 Seg Neuts % (Manual) 55.0 % (40.0-70.0) 01/02/21 15:00 Band Neutrophils % 1.0 % 01/02/21 15:00 Lymphocytes % (Manual) 31.0 % (13.4-35.0) 01/02/21 15:00 Monocytes % (Manual) 12.0 % (0.0-7.3) H 01/02/21 15:00 Eosinophils % (Manual) 1.0 % (0.0-4.3) 01/02/21 15:00 Nucleated RBC % Not Reportable 01/02/21 15:00 Seg Neutrophils # 3.3 K/mm3 (1.8-7.7) 01/03/21 05:07 Seg Neutrophils # Man 3.5 K/mm3 (1.8-7.7) 01/02/21 15:00 Band Neutrophils # 0.1 K/mm3 01/02/21 15:00 Lymphocytes # (Manual) 2.0 K/mm3 (1.2-5.4) 01/02/21 15:00 Abs React Lymphs (Man) 0.0 K/mm3 01/02/21 15:00 Monocytes # (Manual) 0.8 K/mm3 (0.0-0.8) 01/02/21 15:00 Eosinophils # (Manual) 0.1 K/mm3 (0.0-0.4) 01/02/21 15:00 Basophils # (Manual) 0.0 K/mm3 (0.0-0.1) 01/02/21 15:00 Metamyelocytes # 0.0 K/mm3 01/02/21 15:00 Myelocytes # 0.0 K/mm3 01/02/21 15:00 Promyelocytes # 0.0 K/mm3 01/02/21 15:00 Blast Cells # 0.0 K/mm3 01/02/21 15:00 WBC Morphology Not Reportable 01/02/21 15:00 Hypersegmented Neuts Not Reportable 01/02/21 15:00 Hyposegmented Neuts Not Reportable 01/02/21 15:00 Hypogranular Neuts Not Reportable 01/02/21 15:00 Smudge Cells Not Reportable 01/02/21 15:00 Toxic Granulation Not Reportable 01/02/21 15:00 Toxic Vacuolation Not Reportable 01/02/21 15:00 Dohle Bodies Not Reportable 01/02/21 15:00 Pelger-Huet Anomaly Not Reportable 01/02/21 15:00 Eze Rods Not Reportable 01/02/21 15:00 Platelet Estimate Consistent w auto 01/02/21 15:00 Clumped Platelets Not Reportable 01/02/21 15:00 Plt Clumps, EDTA Not Reportable 01/02/21 15:00 Large Platelets Rare 01/02/21 15:00 Giant Platelets Rare 01/02/21 15:00 Platelet Satelliting Not Reportable 01/02/21 15:00 Plt Morphology Comment Not Reportable 01/02/21 15:00 RBC Morphology Not Reportable 01/02/21 15:00 Dimorphic RBCs Not Reportable 01/02/21 15:00 Polychromasia Rare 01/02/21 15:00 Hypochromasia Not Reportable 01/02/21 15:00 Poikilocytosis Not Reportable 01/02/21 15:00 Anisocytosis Rare 01/02/21 15:00 Microcytosis Not Reportable 01/02/21 15:00 Macrocytosis Not Reportable 01/02/21 15:00 Spherocytes Not Reportable 01/02/21 15:00 Pappenheimer Bodies Not Reportable 01/02/21 15:00 Sickle Cells Not Reportable 01/02/21 15:00 Target Cells Not Reportable 01/02/21 15:00 Tear Drop Cells Not Reportable 01/02/21 15:00 Ovalocytes Rare 01/02/21 15:00 Helmet Cells Not Reportable 01/02/21 15:00 [place] Bodies Not Reportable 01/02/21 15:00 [place] Rings Not Reportable 01/02/21 15:00 Mario Cells Not Reportable 01/02/21 15:00 Bite Cells Not Reportable 01/02/21 15:00 Crenated Cell Not Reportable 01/02/21 15:00 Elliptocytes Not Reportable 01/02/21 15:00 Acanthocytes (Spur) Not Reportable 01/02/21 15:00 Rouleaux Not Reportable 01/02/21 15:00 Hemoglobin C Crystals Not Reportable 01/02/21 15:00 Schistocytes Not Reportable 01/02/21 15:00 Malaria parasites Not Reportable 01/02/21 15:00 Sj Bodies Not Reportable 01/02/21 15:00 Hem Pathologist Commnt No 01/02/21 15:00 Sodium 140 mmol/L (137-145) 01/04/21 06:53 Potassium 3.6 mmol/L (3.6-5.0) D 01/04/21 06:53 Chloride 97.3 mmol/L (98-107) L 01/04/21 06:53 Carbon Dioxide 34 mmol/L (22-30) H 01/04/21 06:53 Anion Gap 12 mmol/L 01/04/21 06:53 BUN 20 mg/dL (9-20) 01/04/21 06:53 Creatinine 0.8 mg/dL (0.8-1.3) 01/04/21 06:53 Estimated GFR > 60 ml/min 01/04/21 06:53 BUN/Creatinine Ratio 25 % 01/04/21 06:53 Glucose 96 mg/dL (75-100) 01/04/21 06:53 POC Glucose 112 mg/dL (70-105) H 01/04/21 07:21 Hemoglobin A1c 5.2 % (4-6) 01/03/21 00:50 Calcium 7.9 mg/dL (8.4-10.2) L 01/04/21 06:53 Magnesium 2.10 mg/dL (1.7-2.3) 01/02/21 15:00 Total Bilirubin 1.00 mg/dL (0.1-1.2) 01/04/21 06:53 AST 72 units/L (5-40) H 01/04/21 06:53 ALT 182 units/L (7-56) H 01/04/21 06:53 Alkaline Phosphatase 125 units/L (35-129) 01/04/21 06:53 Total Creatine Kinase 225 units/L (55-170) H 01/02/21 15:00 Troponin T < 0.010 ng/mL (0.00-0.029) 01/02/21 15:00 NT-Pro-B Natriuret Pep 6872 pg/mL (0-900) H 01/02/21 15:00 Total Protein 7.2 g/dL (6.3-8.2) 01/04/21 06:53 Albumin 3.0 g/dL (3.9-5) L 01/04/21 06:53 Albumin/Globulin Ratio 0.7 % 01/04/21 06:53 Urine Color Straw (Yellow) 01/03/21 02:37 Urine Turbidity Clear (Clear) 01/03/21 02:37 Urine pH 5.0 (5.0-7.0) 01/03/21 02:37 Ur Specific [place] 1.005 (1.003-1.030) 01/03/21 02:37 Urine Protein <15 mg/dl mg/dL (Negative) 01/03/21 02:37 Urine Glucose (UA) Neg mg/dL (Negative) 01/03/21 02:37 Urine Ketones Neg mg/dL (Negative) 01/03/21 02:37 Urine Blood Sm (Negative) 01/03/21 02:37 Urine Nitrite Neg (Negative) 01/03/21 02:37 Urine Bilirubin Neg (Negative) 01/03/21 02:37 Urine Urobilinogen < 2.0 mg/dL (<2.0) 01/03/21 02:37 Ur Leukocyte Esterase Neg (Negative) 01/03/21 02:37 Urine WBC (Auto) < 1.0 /HPF (0.0-6.0) 01/03/21 02:37 Urine RBC (Auto) 1.0 /HPF (0.0-6.0) 01/03/21 02:37 U Epithel Cells (Auto) 1.0 /HPF (0-13.0) 01/03/21 02:37 [place]/IV: Voiding Method Toilet Active Medications - Current Medications Current Medications: Generic Name Dose Route Start Last Admin Trade Name Freq PRN Reason Stop Dose Admin Acetaminophen 650 mg 01/02/21 23:01 Acetaminophen 325 Mg Tab PO Q4H PRN Pain MILD(1-3)/Fever >100.5/MENDOZA Al Hydrox/Mg Hydrox/Simethicone 30 ml 01/02/21 23:01 Alum-Mag Hydroxide-Simethicone [id number]/5ml Oral Liqd 30 Ml PO Q4H PRN Indigestion Carvedilol 12.5 mg 01/04/21 17:00 Carvedilol 12.5 Mg Tab PO BID@0800,1700 HENRRY Furosemide 40 mg 01/03/21 06:00 01/04/21 06:33 Furosemide 40 Mg/4 Ml Inj IV 40 mg BID@0600,1800 HENRRY Administration Hydralazine HCl 5 mg 01/02/21 23:05 Hydralazine 20 Mg/1 Ml Inj IV Q4H PRN Hypertension Lisinopril 10 mg 01/03/21 10:00 01/04/21 11:31 Lisinopril 10 Mg Tab PO 10 mg QDAY HENRRY Administration Magnesium Hydroxide 30 ml 01/02/21 23:01 Magnesium Hydroxide (Mom) Oral Liqd Udc PO Q4H PRN Constipation Ondansetron HCl 4 mg 01/02/21 23:01 Ondansetron 4 Mg/2 Ml Inj IV Q8H PRN Nausea And Vomiting Senna 8.6 mg 01/02/21 23:01 Sennosides 8.6 Mg Tab PO Q12HR PRN Constipation Sodium Chloride 10 ml 01/03/21 10:00 01/03/21 22:50 Sodium Chloride 0.9% 10 Ml Flush Syringe IV 10 ml BID HENRRY Administration Sodium Chloride 10 ml 01/02/21 23:01 01/03/21 05:37 Sodium Chloride 0.9% 10 Ml Flush Syringe IV 10 ml PRN PRN Administration LINE FLUSH Tramadol HCl 50 mg 01/02/21 23:05 Tramadol 50 Mg Tab PO Q6H PRN Pain, Moderate (4-6) Trazodone HCl 50 mg 01/02/21 23:05 Trazodone 50 Mg Tab PO QHS PRN Insomnia
[2021-01-04] MEDS ORDERED: POTASSIUM CHLORIDE ER 20 MEQ TAB PO SCH (15:00)
--- NOTE | 2021-01-04 16:29 | Progress Note ---
Assessment and Plan Telemetry reviewed: Sinus tach 110. No events Cardiomyopathy * Echocardiogram reviewed (01/02/2021): LVEF is 20 to 25%. Severe global hypo kinesis of the left ventricle. Right ventricle is moderately hypokinetic. Mild to moderate TR. RVSP 64 mmHg. Moderate pulmonary hypertension. Mild pulmonic regurg. * [facility] planned for a.m. (01/05/2021) for further classification of cardiomyopathy. Procedure including potential risks and benefits were discussed with the patient who is agreeable to proceed at this time. N.p.o. after midnight Heart failure reduced ejection fraction * Patient has chronic bilateral lower extremity edema * Continue volume optimization: Continue Lasix 40 mg IV twice daily. Repeat BMP in a.m. * Give potassium chloride PO 20meq once. continue to monitor and replete potassium as necessary Medical noncompliance * Patient is indigent and has not followed up with cardiology or been compliant with medication for the last 6 months. Tobacco use * Greater than 40 pack years. Cessation encouraged DVT prophylaxis * Heparin SQ Heart cath in a.m. We will follow This patient was seen in conjunction with Dr Trejo who agrees with this assessment and plan of care (1) Essential hypertension Current Visit: Yes Status: Acute (2) heart failure reduced ejection fraction Current Visit: Yes Status: Acute (3) Elevated liver transaminase level Current Visit: Yes Status: Acute (4) Smoking greater than 40 pack years Current Visit: Yes Status: Acute (5) cardiomyopathy Current Visit: Yes Status: Acute Subjective Date of service: 01/04/21 Principal diagnosis: Heart failure reduced ejection fraction Interval history: Patient is resting comfortably in bed. No shortness of breath or chest pain overnight. Telemetry reviewed: Sinus tach 110. No events Objective Last Vital Signs Temp 97.6 F 01/04/21 07:22 Pulse 91 H 01/04/21 07:22 Resp 20 01/04/21 07:22 BP 134/93 01/04/21 07:22 Pulse Ox 90 01/04/21 07:22 - Physical Examination HEENT: Positive: PERRL Neck: Positive: neck supple, trachea midline Cardiac: Positive: Regular Rhythm, S1/S2 Lungs: Positive: Normal Exam, Normal Breath Sounds Neuro: Positive: Grossly Intact Abdomen: Positive: Unremarkable Skin: Positive: Rash Incision: Incision Site (Patient has Bandage in the right foot from recent surgery few weeks ago.) Extremities: Present: upper extr. pulses, lower extr. pulses, +2 Edema - Labs and Meds Cardiac Enzymes 01/04/21 Range/Units 06:53 AST 72 H (5-40) units/L CBC 01/04/21 Range/Units 06:53 WBC 7.5 (4.5-11.0) K/mm3 RBC 3.95 (3.65-5.03) M/mm3 Hgb 12.3 (11.8-15.2) gm/dl Hct 37.8 (35.5-45.6) % Plt Count 301 (140-440) K/mm3 Comprehensive Metabolic Panel 01/04/21 Range/Units 06:53 Sodium 140 (137-145) mmol/L Potassium 3.6 D (3.6-5.0) mmol/L Chloride 97.3 L (98-107) mmol/L Carbon Dioxide 34 H (22-30) mmol/L BUN 20 (9-20) mg/dL Creatinine 0.8 (0.8-1.3) mg/dL Glucose 96 (75-100) mg/dL Calcium 7.9 L (8.4-10.2) mg/dL AST 72 H (5-40) units/L ALT 182 H (7-56) units/L Alkaline Phosphatase 125 (35-129) units/L Total Protein 7.2 (6.3-8.2) g/dL Albumin 3.0 L (3.9-5) g/dL - Imaging and Cardiology Echo: report reviewed (Echocardiogram reviewed (01/02/2021): LVEF is 20 to 25%. Severe global hypokinesis of the left ventricle. Right ventricle is moderately hypokinetic. Mild to moderate TR. RVSP 64 mmHg. Moderate pulmonary hypertension. Mild pulmonic regurg.) Cardiac cath: pending - Telemetry EKG Rhythm: Sinus Tachycardia
[2021-01-04] MEDS: carvediloL 12.5 MG TAB PO SCH (17:55)
[2021-01-04] MEDS: HEPARIN 5,000 UNIT/1 ML VIAL SUB-Q SCH (22:05)
[2021-01-05] MEDS ORDERED: ASPIRIN EC 325 MG TAB PO NR (06:00)
[2021-01-05 06:04] LABS: Basophils % (Auto) 0.6 % (0.0-1.8); Eosinophils # (Auto) 0.2 K/mm3 (0.0-0.4); Eosinophils % (Auto) 2.9 % (0.0-4.3); Hematocrit 36.6 % (35.5-45.6); Hemoglobin 11.7 gm/dl (11.8-15.2); INR 1.62 (0.87-1.13); Lymphocytes # (Auto) 1.2 K/mm3 (1.2-5.4); Lymphocytes % (Auto) 22.9 % (13.4-35.0); Mean Corpuscular HGB Conc 32 % (32-34); Mean Corpuscular Volume 96 fl (84-94); Monocytes # (Auto) 0.8 K/mm3 (0.0-0.8); Monocytes % (Auto) 15.5 % (0.0-7.3); Platelet Count 320 K/mm3 (140-440); Red Cell Distribution Width 16.2 % (13.2-15.2)
[2021-01-05] MEDS: FUROSEMIDE 40 MG/4 ML INJ IV SCH ×2 (06:06→19:32)
[2021-01-05 06:20] LABS: BUN/Creatinine Ratio 26; Blood Urea Nitrogen 23 mg/dL (9-20); Calcium 7.9 mg/dL (8.4-10.2); Hemolysis Index 4
[2021-01-05] MEDS ORDERED: POTASSIUM CHLORIDE ER 20 MEQ TAB PO NR (08:08)
[2021-01-05] MEDS ORDERED: SODIUM CHLORIDE 0.9% 500 ML 500 ML ONE (08:16)
[2021-01-05] MEDS ORDERED: HEPARIN 10,000 UNITS/10 ML VIAL ONE (08:45)
[2021-01-05] MEDS ORDERED: HEPARIN/NS 5000 UNIT/500ML 1,000 ML IR ONE (08:45)
[2021-01-05] MEDS ORDERED: VERAPAMIL 5 MG/2 ML INJ ONE (08:45)
[2021-01-05] MEDS ORDERED: LIDOCAINE (2%) 20 MG/1 ML VIAL 20 ML MDV INFILTRATI ONE (08:45)
[2021-01-05] MEDS ORDERED: NITROGLYCERIN SYRINGE 3 ML ONE (08:46)
[2021-01-05] MEDS ORDERED: fentaNYL 100 MCG/2 ML INJ ONE (08:48)
[2021-01-05] MEDS ORDERED: MIDAZOLAM 2 MG/2 ML INJ ONE (08:48)
[2021-01-05] MEDS ORDERED: SODIUM CHLORIDE 0.9% 500 ML 500 ML IV SCH (09:00)
[2021-01-05] MEDS ORDERED: MAGNESIUM SULFATE 1 GM in SODIUM CHLORIDE 0.9% 50 ML IV ONE (09:00)
--- NOTE | 2021-01-05 09:55 | Progress Note ---
Assessment and Plan 55-year-old male who has hypertension diabetes hyperlipidemia EtOH abuse and smoker discussed in detail about smoking cessation EtOH cessation. Hold off statins in view of elevated LFTs. Patient's heart failure is improving. Cardiac cath revealed nonobstructive coronary arterial disease nonischemic cardiomyopathy. Change to oral Lasix in the morning. Start Aldactone. Continue lisinopril carvedilol. Anticipate discharge in a.m. patient has hypomagnesium supplemented today recheck labs in the morning - Patient Problems (1) Non-ischemic cardiomyopathy Current Visit: Yes Status: Chronic (2) ETOH abuse Current Visit: Yes Status: Chronic (3) Needs smoking cessation education Current Visit: Yes Status: Acute (4) Acute exacerbation of congestive heart failure Current Visit: Yes Status: Acute Qualifiers: Heart failure type: systolic Qualified Code(s): I50.23 - Acute on chronic systolic (congestive) heart failure (5) Diabetes type 2, uncontrolled Current Visit: Yes Status: Chronic Qualifiers: Glycemic state: with hyperglycemia Qualified Code(s): E11.65 - Type 2 diabetes mellitus with hyperglycemia (6) Elevated liver transaminase level Current Visit: Yes Status: Acute (7) Essential hypertension Current Visit: Yes Status: Chronic (8) Smoking greater than 40 pack years Current Visit: Yes Status: Chronic (9) Hyperlipemia, mixed Current Visit: Yes Status: Chronic Subjective Date of service: 01/05/21 Principal diagnosis: Heart failure reduced ejection fraction Interval history: sob has improved Objective Vital Signs Temp Pulse Pulse Resp BP Pulse Ox 01/05/21 07:46 22 93 01/05/21 06:00 90 01/05/21 03:35 95 01/05/21 03:33 98.4 F 90 16 109/63 86 01/04/21 23:23 98.1 F 89 16 104/63 90 01/04/21 22:00 89 94 H 20 94 01/04/21 19:10 99.0 F 94 H 16 127/70 89 01/04/21 15:15 98.3 F 84 20 125/74 91 01/04/21 14:00 84 01/04/21 11:34 98.9 F 89 22 90 01/04/21 11:29 97.8 F 88 20 121/72 85 01/04/21 10:00 90 - Physical Examination HEENT: Positive: PERRL Neck: Positive: neck supple, trachea midline Cardiac: Positive: Reg Rate and Rhythm Lungs: Positive: clear to auscultation Neuro: Positive: Grossly Intact Abdomen: Positive: Unremarkable Skin: Positive: Rash Incision: Incision Site (Patient has Bandage in the right foot from recent surgery few weeks ago.) Extremities: Present: upper extr. pulses, lower extr. pulses, edema (trace) - Labs and Meds Coagulation 01/05/21 Range/Units 04:59 PT 19.3 H (12.2-14.9) Sec. INR 1.62 H (0.87-1.13) CBC 01/05/21 Range/Units 04:59 WBC 5.3 (4.5-11.0) K/mm3 RBC 3.80 (3.65-5.03) M/mm3 Hgb 11.7 L (11.8-15.2) gm/dl Hct 36.6 (35.5-45.6) % Plt Count 320 (140-440) K/mm3 Lymph # (Auto) 1.2 (1.2-5.4) K/mm3 [place] # (Auto) 0.8 (0.0-0.8) K/mm3 Eos # (Auto) 0.2 (0.0-0.4) K/mm3 Baso # (Auto) 0.0 (0.0-0.1) K/mm3 Comprehensive Metabolic Panel 01/05/21 Range/Units 04:59 Sodium 142 (137-145) mmol/L Potassium 3.3 L (3.6-5.0) mmol/L Chloride 96.8 L (98-107) mmol/L Carbon Dioxide 37 H (22-30) mmol/L BUN 23 H (9-20) mg/dL Creatinine 0.9 (0.8-1.3) mg/dL Glucose 154 H (75-100) mg/dL Calcium 7.9 L (8.4-10.2) mg/dL - Imaging and Cardiology Echo: report reviewed (Echocardiogram reviewed (01/02/2021): LVEF is 20 to 25%. Severe global hypokinesis of the left ventricle. Right ventricle is moderately hypokinetic. Mild to moderate TR. RVSP 64 mmHg. Moderate pulmonary hypertension. Mild pulmonic regurg.) Cardiac cath: report reviewed (lt main patent, lad 30%, lcx patent, rca patent ef 25%) - Telemetry EKG Rhythm: Sinus Rhythm
--- NOTE | 2021-01-05 10:12 | Cardiac Catherization Report ---
DATE OF SERVICE: 01/05/2021 LEFT HEART CATHETERIZATION CLINICAL INFORMATION: This is a 55-year-old smoker, ETOH abuse, has came in for systolic heart failure, noncompliance. He has a history of LV dysfunction from last year, here for an ischemic evaluation for persistent LV dysfunction. DESCRIPTION OF PROCEDURE: Procedure was done with moderate sedation, started 9:32, finished 9:42, 10 minutes of moderate sedation. Procedure was done via the right radial artery, sterile technique, local anesthesia. A 6-[place]aur[place] radial sheath inserted, left system engaged with a JL3.5 catheter, Mild calcification of left and right system. FINDINGS: Left main is large and patent, bifurcates to a medium caliber LAD, proximal 30% calcified smooth. Rest of the LAD is medium caliber vessel, patent. Diagonal 1 and diagonal 2 small to medium caliber and patent. Circumflex in the AV groove is small to medium caliber vessel, patent with mild luminal irregularities. OM1, 2 and 3 are small to medium caliber vessels, patent with mild luminal irregularities. RCA engaged with JR4 patent_ calcification, patent with mild luminal irregularities, smooth. LV gram done in the [facility] and [facility]AYOA shows severe LV dysfunction, EF 20-25%. LVEDP 33 mmHg. LV is 114, aortic is _114 /78. No gradient across the aortic valve on pullback. 5-[place]aur[place] catheter takeout over_ guidewire. A 6-[place]aur[place] radial sheath was discontinued. radial dressing applied. No hematoma, no bleeding. SUMMARY: Nonobstructive coronary artery disease. Left main patent. Calcified left and right system. LAD proximal 30%, smooth. The rest of the LAD is patent. Circumflex patent with mild luminal irregularities. OM1, 2 and 3 are patent with mild luminal irregularities. RCA patent with mild luminal irregularities. Severe LV dysfunction. Nonischemic cardiomyopathy. TID: [id number] RECEIPT: [id number] GILDA/TERELL/JOSÉ MIGUEL MOTLEY
--- NOTE | 2021-01-05 10:25 | Electrocardiograph Report ---
[facility] Test Date: 2021-01-04 Test Time: 12:58:04 Pat Name: NILSON LUZ Department: Room: A473 1 Gender: M Resource Recovery Engineer: MANOJ : 1965 Requested By: BRIELLE COVINGTON Order Number: [id number] Reading MD: Fausto Trejo Measurements Intervals [place] Rate: 90 P: 83 NE: 159 QRS: 99 QRSD: 96 T: -51 QT: 393 QTc: 481 Interpretive Statements Sinus rhythm Probable left atrial enlargement non specific st-t Compared to ECG 01/02/2021 14:55:53 Sinus tachycardia no longer present Right-axis deviation no longer present T-wave abnormality no longer present Electronically Signed On 01-05-2021 10:24:39 EDT by Fausto Trejo
[2021-01-05] MEDS ORDERED: MAGNESIUM SULFATE 3 GM in SODIUM CHLORIDE 0.9% 100 ML IV ONE (11:00)
[2021-01-05] MEDS: HEPARIN 5,000 UNIT/1 ML VIAL SUB-Q SCH ×2 (11:31→21:36)
[2021-01-05] MEDS: carvediloL 12.5 MG TAB PO SCH ×2 (11:31→19:31)
[2021-01-05] MEDS: SPIRONOLACTONE 25 MG TAB PO SCH (11:31)
[2021-01-05] MEDS: LISINOPRIL 10 MG TAB PO SCH (11:32)
--- NOTE | 2021-01-05 15:04 | Progress Note ---
Assessment and Plan -- Acute on chronic congestive heart failure presumed systolic with exacerbation ASA, BB, diuretics and oxygen supplement if needed ECHO and procedural nurse consul Chest x-ray shows Pulmonary edema and blood work shows elevated BNP -- Diabetes type 2, uncontrolled Monitor blood sugar with SSI Check HGA1c -- Hyperkalemia Status post Kayaoxalate Monitor potassium level Check Mag level -- Elevated liver transaminase level ? Cause- alcohol use/hepatitis/dehydration Monitor liver enzymes Will Consult GI if needed -- Protein-calorie malnutrition, moderate Consult associate professor of kinesiology Advised on healthy diet --Hyponatremia, follow BMP -- Partial right foot amputation with debility, PT eval --Hypomagnesemia, replete --EtOH abuse, counseled, patient stated that he quit drinking --Tobacco abuse counseled for cessation -- DVT prophylaxis, SCD -- Full code status Brief history Patient is 55-year-old male with a recent diagnosis of congestive heart failure and hypertension brought to the EMS for evaluation of generalized weakness and unable to eat or drink and no energy. Patient also complaining of bilateral lower extremity swelling and shortness of breath. ED work-up shows WBC 6.4, platelets 278 hemoglobin 12.1, sodium level 133 potassium 5.7 creatinine 0.6, AST 101 and 109, ALT 222 and 236 BNP 6872 serum albumin 3.1 and 3.3. Chest x-ray showed mild bilateral interstitial edema. Patient has elevated potassium and was given Kayexalate x1. Patient admitted to the hospital for CHF evaluation, cardiology consulted and echo ordered. 01/03: Abdominal ultrasound ordered by me shows diffuse steatosis. Continue supportive care will obtain PT OT. Fall precautions. Continue diuresis. Patient according to ER documentation was found in a questionable social situation. Will obtain case management evaluation as ultimately a safe environment is in the for the patient. I also discussed with nursing staff to obtain his home medication list to assist with his management. He is a poor historian and some of his information are not I did not. Monitor electrolytes and correct as needed. Kayexalate was given again today for the hyperkalemia we will recheck labs in a.m.. Elevated LFTs may be precluding the use of atorvastatin but will defer to cardiology. 01/04: Continue supportive care discussed with procedural nurse will plan for cardiac cath probably in a.m.. Requested records from hospital in [place] 01/05: Status post cardiac cath today revealed nonobstructive coronary arterial disease nonischemic cardiomyopathy. Change to oral Lasix in the morning. Start Aldactone. Continue lisinopril carvedilol. Replete magnesium, anticipate discharge in a.m. when placement arranged. Subjective Date of service: 01/05/21 Principal diagnosis: Heart failure reduced ejection fraction Interval history: Patient seen and examined. Medical records and medication list reviewed. No acute event overnight noted by the RN. Patient denies any chest pain or difficulty breathing. Patient is tolerating diet. Discussed plan of care at bedside with patient. Objective - Exam Narrative Exam: GENERAL: well-developed obese -[place] male lying on bed appeared to be in no discomfort. HEENT: Normocephalic. Atraumatic. No conjunctival congestion or icterus. Patient has moist mucous membranes. NECK: Supple. Trachea midline. CHEST/LUNGS: Clear to auscultated bilaterally, breathing nonlabored. No wheezes crackles or rhonchi. HEART/CARDIOVASCULAR: Regular in rate and rhythm. S1 and S2 positive. ABDOMEN: Abdomen is soft, nontender. Patient has normal bowel sounds. SKIN: There is no rash. Warm and dry. NEURO: No focal motor deficit. Follows command. MUSCULOSKELETAL: No joint effusion or tenderness. EXTRIMITY: No edema, no cyanosis or clubbing. PSYCH: Cooperative. - Constitutional Vitals: Vital Signs - 12hr 01/05/21 01/05/21 01/05/21 03:33 03:35 06:00 Temperature 98.4 F Pulse Rate 90 90 Respiratory 16 Rate Blood Pressure 109/63 O2 Sat by Pulse 86 95 Oximetry 01/05/21 01/05/21 07:46 11:34 Temperature 97.9 F Pulse Rate 82 Respiratory 22 18 Rate Blood Pressure 119/77 O2 Sat by Pulse 93 100 Oximetry - Labs CBC & Chem 7: 01/06/21 04:55 01/06/21 04:55 Labs: Abnormal lab results 01/04/21 01/04/21 01/05/21 Range/Units 15:19 20:27 04:59 Hgb 11.7 L (11.8-15.2) gm/dl MCV 96 H (84-94) fl RDW 16.2 H (13.2-15.2) % [place] % (Auto) 15.5 H (0.0-7.3) % PT (12.2-14.9) Sec. INR (0.87-1.13) Potassium (3.6-5.0) mmol/L Chloride (98-107) mmol/L Carbon Dioxide (22-30) mmol/L BUN (9-20) mg/dL Glucose (75-100) mg/dL POC Glucose 112 H 152 H (70-105) mg/dL Calcium (8.4-10.2) mg/dL Magnesium (1.7-2.3) mg/dL 01/05/21 01/05/21 01/05/21 Range/Units 04:59 04:59 05:36 Hgb (11.8-15.2) gm/dl MCV (84-94) fl RDW (13.2-15.2) % [place] % (Auto) (0.0-7.3) % PT 19.3 H (12.2-14.9) Sec. INR 1.62 H (0.87-1.13) Potassium 3.3 L (3.6-5.0) mmol/L Chloride 96.8 L (98-107) mmol/L Carbon Dioxide 37 H (22-30) mmol/L BUN 23 H (9-20) mg/dL Glucose 154 H (75-100) mg/dL POC Glucose 139 H (70-105) mg/dL Calcium 7.9 L (8.4-10.2) mg/dL Magnesium 1.50 L (1.7-2.3) mg/dL 01/05/21 Range/Units 11:32 Hgb (11.8-15.2) gm/dl MCV (84-94) fl RDW (13.2-15.2) % [place] % (Auto) (0.0-7.3) % PT (12.2-14.9) Sec. INR (0.87-1.13) Potassium (3.6-5.0) mmol/L Chloride (98-107) mmol/L Carbon Dioxide (22-30) mmol/L BUN (9-20) mg/dL Glucose (75-100) mg/dL POC Glucose 175 H (70-105) mg/dL Calcium (8.4-10.2) mg/dL Magnesium (1.7-2.3) mg/dL HEART Score - HEART Score Troponin: Troponin T < 0.010 ng/mL (0.00-0.029) 01/02/21 15:00
--- NOTE | 2021-01-05 17:44 | Electrocardiograph Report ---
[facility] Test Date: 2021-01-02 Test Time: 14:55:53 Pat Name: NILSON LUZ Department: Room: A473 1 Gender: M Sample Carrier: ARIS : 1965 Requested By: FARAZ WALL Order Number: [id number] Reading MD: Rupesh Rutledge Measurements Intervals [place] Rate: 105 P: 85 NV: 142 QRS: 102 QRSD: 94 T: -41 QT: 340 QTc: 451 Interpretive Statements Sinus tachycardia Probable left atrial enlargement Right axis deviation Poor R wave progression Borderline T abnormalities, diffuse leads No previous ECG available for comparison Electronically Signed On 01-05-2021 17:43:36 EDT by Rupesh Rutledge
[2021-01-06 06:30] LABS: Basophils % (Auto) 0.5 % (0.0-1.8); Eosinophils # (Auto) 0.2 K/mm3 (0.0-0.4); Eosinophils % (Auto) 2.8 % (0.0-4.3); Hemoglobin 12.2 gm/dl (11.8-15.2); Lymphocytes # (Auto) 1.5 K/mm3 (1.2-5.4); Lymphocytes % (Auto) 25.4 % (13.4-35.0); Mean Corpuscular HGB Conc 32 % (32-34); Mean Corpuscular Volume 98 fl (84-94); Monocytes # (Auto) 0.8 K/mm3 (0.0-0.8); Monocytes % (Auto) 14.1 % (0.0-7.3); Platelet Count 303 K/mm3 (140-440); Red Blood Count 3.89 M/mm3 (3.65-5.03); Red Cell Distribution Width 16.8 % (13.2-15.2)
[2021-01-06 06:47] LABS: Alanine Aminotransferase 105 units/L (7-56); BUN/Creatinine Ratio 26; Blood Urea Nitrogen 23 mg/dL (9-20); Calcium 8.4 mg/dL (8.4-10.2); Hemolysis Index 0
--- NOTE | 2021-01-06 09:50 | Progress Note ---
Assessment and Plan Telemetry reviewed: Sinus tach 110. No events Nonobstructive coronary artery disease * [facility] reviewed (01/05/2021): Nonobstructive coronary artery disease. Proximal LAD 30%. * Right radial cath site inspected: Telfa Tegaderm in place, no bleeding or hematoma. No erythema or exudate or edema noted. Distal PMS intact. Nonischemic cardiomyopathy * Echocardiogram reviewed (01/02/2021): LVEF is 20 to 25%. Severe global hypokinesis of the left ventricle. Right ventricle is moderately hypokinetic. Mild to moderate TR. RVSP 64 mmHg. Moderate pulmonary hypertension. Mild pulmonic regurg. * Recommend continue current cardiac regimen: Coreg 12.5 mg p.o. twice daily, lisinopril 10 mg daily, Lasix 40 mg p.o. qhs, Aldactone 25 mg daily, aspirin 81 mg daily. Heart failure reduced ejection fraction * Patient appears to be nearing euvolemia. Volume control medications converted to p.o. Medical noncompliance * Patient is indigent and has not followed up with cardiology or been compliant with medication for the last 6 months. Tobacco use * Greater than 40 pack years. Cessation encouraged DVT prophylaxis * Heparin SQ Patient is currently stable cardiac status. Patient may discharge from cardiac standpoint. Will follow on as-needed basis. This patient was seen in conjunction with Dr Trejo who agrees with this assessment and plan of care (1) Essential hypertension Current Visit: Yes Status: Acute (2) heart failure reduced ejection fraction Current Visit: Yes Status: Acute (3) Elevated liver transaminase level Current Visit: Yes Status: Acute (4) Smoking greater than 40 pack years Current Visit: Yes Status: Acute (5) cardiomyopathy Current Visit: Yes Status: Acute (6) Nonobstructive Coronary Artery Disease Current Visit: Yes Status: Chronic Subjective Date of service: 01/06/21 Principal diagnosis: Heart failure reduced ejection fraction Interval history: Patient is resting comfortably in bed. No shortness of breath or chest pain overnight. Telemetry reviewed: Sinus rhythm 87. No events Objective Last Vital Signs Temp 97.5 F L 01/06/21 04:24 Pulse 75 01/06/21 05:06 Resp 18 01/06/21 04:24 BP 125/84 01/06/21 04:24 Pulse Ox 85 01/06/21 04:24 - Physical Examination General: No Apparent Distress HEENT: Positive: PERRL, Normocephaly, Mucus Membranes Moist Neck: Positive: neck supple, trachea midline Cardiac: Positive: Reg Rate and Rhythm, S1/S2 Lungs: Positive: Normal Exam, Normal Breath Sounds Neuro: Positive: Grossly Intact Abdomen: Positive: Unremarkable Skin: Positive: Rash, Other (Right radial cath site inspected no bleeding or hematoma noted.) Incision: Incision Site (Patient has Bandage in the right foot from recent surgery few weeks ago.) Musculoskeletal: No Pain Extremities: Present: upper extr. pulses, lower extr. pulses, edema (trace) - Labs and Meds Cardiac Enzymes 01/06/21 Range/Units 04:55 AST 37 (5-40) units/L CBC 01/06/21 Range/Units 04:55 WBC 6.0 (4.5-11.0) K/mm3 RBC 3.89 (3.65-5.03) M/mm3 Hgb 12.2 (11.8-15.2) gm/dl Hct 38.0 (35.5-45.6) % Plt Count 303 (140-440) K/mm3 Lymph # (Auto) 1.5 (1.2-5.4) K/mm3 [place] # (Auto) 0.8 (0.0-0.8) K/mm3 Eos # (Auto) 0.2 (0.0-0.4) K/mm3 Baso # (Auto) 0.0 (0.0-0.1) K/mm3 Comprehensive Metabolic Panel 01/06/21 Range/Units 04:55 Sodium 142 (137-145) mmol/L Potassium 3.4 L (3.6-5.0) mmol/L Chloride 97.7 L (98-107) mmol/L Carbon Dioxide 38 H (22-30) mmol/L BUN 23 H (9-20) mg/dL Creatinine 0.9 (0.8-1.3) mg/dL Glucose 153 H (75-100) mg/dL Calcium 8.4 (8.4-10.2) mg/dL AST 37 (5-40) units/L ALT 105 H (7-56) units/L Alkaline Phosphatase 121 (35-129) units/L Total Protein 7.5 (6.3-8.2) g/dL Albumin 3.0 L (3.9-5) g/dL - Imaging and Cardiology Echo: report reviewed (Echocardiogram reviewed (01/02/2021): LVEF is 20 to 25%. Severe global hypokinesis of the left ventricle. Right ventricle is moderately hypokinetic. Mild to moderate TR. RVSP 64 mmHg. Moderate pulmonary hypertension. Mild pulmonic regurg.) Cardiac cath: report reviewed (lt main patent, lad 30%, lcx patent, rca patent ef 25%)
[2021-01-06] MEDS ORDERED: POTASSIUM CHLORIDE ER 20 MEQ TAB PO SCH (10:00)
[2021-01-06] MEDS ORDERED: ASPIRIN 81 MG TAB CHEW PO SCH (10:00)
[2021-01-06] MEDS ORDERED: FUROSEMIDE 40 MG TAB PO SCH (10:00)
[2021-01-06] MEDS: SPIRONOLACTONE 25 MG TAB PO SCH (10:56)
[2021-01-06] MEDS: carvediloL 12.5 MG TAB PO SCH ×2 (10:57→17:37)
[2021-01-06] MEDS: HEPARIN 5,000 UNIT/1 ML VIAL SUB-Q SCH (10:57)
[2021-01-06] MEDS: LISINOPRIL 10 MG TAB PO SCH (10:58)
--- NOTE | 2021-01-06 12:23 | Discharge Summary ---
Providers - Providers Date of Admission: 01/02/21 22:34 Date of discharge: 01/06/21 Attending physician: CARISSA WHITE 01/02/21 14:47 Consult to Case Management [CONS] Stat Services Needed at Discharge: Inductor Tester Notified:: case management Additional Physician Instructions: likely needs placement, unable to care for self 01/02/21 23:22 Consult to Physician [CONS] Stat Comment: Consulting Provider: SUNITA NI Physician Instructions: Reason For Exam: CHF 01/03/21 07:15 Consult to Dietitian/Nutrition [CONS] Stat Physician Instructions: Reason For Exam: Reason for Consult: No serum albumin 01/05/21 09:48 Consult to Cardiac Rehabilitation [CONS] Routine Reason For Exam: Cardiac Rehab Evaluation Primary care physician: DIVING FISHER Hospitalization Condition: Stable Pertinent studies: CXR Cardiac cath 2d echo Abdomen US Hospital course: Patient is 55-year-old male with a recent diagnosis of congestive heart failure and hypertension brought to the EMS on 01/02/21 for evaluation of generalized weakness and unable to eat or drink and no energy. Patient also complaining of bilateral lower extremity swelling and shortness of breath. ED work-up shows WBC 6.4, platelets 278 hemoglobin 12.1, sodium level 133 potassium 5.7 creatinine 0.6, AST 101 and 109, ALT 222 and 236 BNP 6872 serum albumin 3.1 and 3.3. Chest x-ray showed mild bilateral interstitial edema. Patient has elevated potassium and was given Kayexalate x1. Patient admitted to the hospital for CHF evaluation, cardiology consulted and echo ordered. Daily clinical course: 01/03: Abdominal ultrasound ordered by me shows diffuse steatosis. Continue supportive care will obtain PT OT. Fall precautions. Continue diuresis. Patient according to ER documentation was found in a questionable social situation. Will obtain case management evaluation as ultimately a safe envi ronment is in the for the patient. I also discussed with nursing staff to obtain his home medication list to assist with his management. He is a poor historian and some of his information are not I did not. Monitor electrolytes and correct as needed. Kayexalate was given again today for the hyperkalemia we will recheck labs in a.m.. Elevated LFTs may be precluding the use of atorvastatin but will defer to cardiology. 01/04: Continue supportive care discussed with survey data technician will plan for cardiac cath probably in a.m.. Requested records from hospital in [place] 01/05: Status post cardiac cath today revealed nonobstructive coronary arterial disease nonischemic cardiomyopathy. Change to oral Lasix in the morning. Start Aldactone. Continue lisinopril carvedilol. Replete magnesium, anticipate discharge in a.m. when placement arranged. 01/06: Patient clinically stable. CM arranged transportation to [place]. Patient will be discharge to [place]. Disposition: [id number]-03 SNF [facility] C[facility] Final Discharge Diagnosis (Prints w/discharge instructions): (1) Non-ischemic cardiomyopathy. Current Visit: Yes Status: Chronic. (2) ETOH abuse. Current Visit: Yes Status: Chronic. (3) Needs smoking cessation education. Current Visit: Yes Status: Acute. (4) Acute exacerbation of congestive heart failure EF 20 to 25%. Current Visit: Yes Status: Acute. Qualifiers: Heart failure type: systolic Qualified Code(s): I50.23 - Acute on chronic systolic (congestive) heart failure. (5) Diabetes type 2, uncontrolled. Current Visit: Yes Status: Chronic. Qualifiers: Glycemic state: with hyperglycemia Qualified Code(s): E11.65 - Type 2 diabetes mellitus with hyperglycemia. (6) Elevated liver transaminase level. Current Visit: Yes Status: Acute. (7) Essential hypertension. Current Visit: Yes Status: Chronic. (8) Smoking greater than 40 pack years. Current Visit: Yes Status: Chronic. (9) Hyperlipemia, mixed. Current Visit: Yes Status: Chronic. 10. Hypomagnesemia, repleted. 11. S/p right foot amputation with debility Core Measure Documentation - Palliative Care Palliative Care/ Comfort Measures: Not Applicable - Core Measures Any of the following diagnoses?: heart failure - Heart Failure Discharge Requirements LAW/ARB for LVSD if EF <40%: Yes Beta regine at discharge: Yes Exam - Physical Exam Narrative exam: GENERAL: well-developed obese -[place] male lying on bed appeared to be in no discomfort. HEENT: Normocephalic. Atraumatic. No conjunctival congestion or icterus. Patient has moist mucous membranes. NECK: Supple. Trachea midline. CHEST/LUNGS: Clear to auscultated bilaterally, breathing nonlabored. No wheezes crackles or rhonchi. HEART/CARDIOVASCULAR: Regular in rate and rhythm. S1 and S2 positive. ABDOMEN: Abdomen is soft, nontender. Patient has normal bowel sounds. SKIN: There is no rash. Warm and dry. NEURO: No focal motor deficit. Follows command. MUSCULOSKELETAL: No joint effusion or tenderness. EXTRIMITY: No edema, no cyanosis or clubbing. s/p Right foot amputation PSYCH: Cooperative. - Constitutional Vitals: Temp Pulse Resp BP Pulse Ox 97.5 F L 75 18 125/84 85 01/06/21 04:24 01/06/21 05:06 01/06/21 04:24 01/06/21 04:24 01/06/21 04:24 Plan Activity: advance as tolerated Weight Bearing Status: Weight Bear as Tolerated Diet: low fat, low salt, diabetic Follow up with: PRIMARY CAREMD [Primary Care Provider] - 3-5 Days LD SULLIVAN MD [Staff Physician] - 7 Days
[2021-01-06 17:36] VITALS: BP 129/74
== END 2021-01-06 19:35 | DRG 287 ==
LOC: ED 13:43 → 4A 22:34
PROVIDERS: ADMIT Internal Medicine Geriatric Medicine; ATTEND Internal Medicine
PROC: 4A023N7 Measurement of Cardiac Sampling and Pressure, Left Heart, Percutaneous Approach (ICD-10-PCS; principal; 2021-01-05)
PROC: B2151ZZ Fluoroscopy of Left Heart using Low Osmolar Contrast (ICD-10-PCS; 2021-01-05)
DX: I11.0 Hypertensive heart disease with heart failure (principal); I25.10 Atherosclerotic heart disease of native coronary artery without angina pectoris; E87.1 Hypo-osmolality and hyponatremia; Z20.822 Contact with and (suspected) exposure to COVID-19; I50.23 Acute on chronic systolic (congestive) heart failure; E44.0 Moderate protein-calorie malnutrition; E87.5 Hyperkalemia; I42.8 Other cardiomyopathies; E11.65 Type 2 diabetes mellitus with hyperglycemia; E78.2 Mixed hyperlipidemia; E83.42 Hypomagnesemia; E66.9 Obesity, unspecified; F10.10 Alcohol abuse, uncomplicated; F17.210 Nicotine dependence, cigarettes, uncomplicated; Z68.37 Body mass index [BMI] 37.0-37.9, adult; Z89.431 Acquired absence of right foot; Z91.19 Patient's noncompliance with other medical treatment and regimen; Z71.41 Alcohol abuse counseling and surveillance of alcoholic; Z71.6 Tobacco abuse counseling; Z83.3 Family history of diabetes mellitus; Z82.49 Family history of ischemic heart disease and other diseases of the circulatory system
CPT/HCPCS: 36415; 71046; 76700; 80048; 80053; 81001; 82550; 82962; 83036; 83735; 83880; 84132; 84484; 85007; 85025; 85027; 85610; 93005; 93306; 93458; 96374; G0378; C1894; J1644; J1940; J2250; J3010; J3475; J7040; Q9967; U0003